=== PATIENT | male | born 1985 | race Hispanic/Latino ===

== ENCOUNTER 2017-08-19 21:51 | Emergency (ER) | payer SELFPAY ==
[2017-08-19] MEDS ORDERED: Adacel (T-DAP) 0.5 ML VIAL ONE (22:43)
[2017-08-19] MEDS ORDERED: Lidocaine 1% PF 5 ML VIAL ONE (22:58)
== END 2017-08-20 00:01 | disposition home or self-care (01) ==
LOC: ERS 21:51
DX: S61.313A Laceration without foreign body of left middle finger with damage to nail, initial encounter (principal); Z23 Encounter for immunization; W26.0XXA Contact with knife, initial encounter
CPT/HCPCS: 12001; 90471; 90715; J2001

== ENCOUNTER 2017-09-03 17:34 | Emergency (ER) | payer SELFPAY ==
[2017-09-03] MEDS ORDERED: Ibuprofen 800 MG TAB ONE (19:05)
== END 2017-09-03 19:24 | disposition home or self-care (01) ==
LOC: ERS 17:34
DX: S61.213D Laceration without foreign body of left middle finger without damage to nail, subsequent encounter (principal)

== ENCOUNTER 2024-12-23 16:40 | Emergency (ER) | payer SELFPAY ==
[2024-12-23] MEDS ORDERED: Boostrix 0.5 ML (Tdap) VIAL (>/=7 yrs of age) ONE (17:59)
[2024-12-23] MEDS ORDERED: Lidocaine 1% w/Epinephrine 1:100K 20 ML VIAL ONE (17:59)
[2024-12-23] MEDS ORDERED: HYDROcodone/Acetaminophen 5/325 mg Tablet ONE (17:59)
[2024-12-23] MEDS ORDERED: Ketorolac Tromethamine 30 MG (1 mL) VIAL ONE (21:00)
== END 2024-12-23 21:14 ==
LOC: ERS 16:40
DX: S01.01XA Laceration without foreign body of scalp, initial encounter (principal); S70.12XA Contusion of left thigh, initial encounter; S80.811A Abrasion, right lower leg, initial encounter; Z23 Encounter for immunization; Z55.6 Problems related to health literacy; W20.8XXA Other cause of strike by thrown, projected or falling object, initial encounter; Y99.0 Civilian activity done for income or pay
CPT/HCPCS: 12004; 70450; 72100; 72125; 72220; 90471; 90715; 96372; J1885